=== PATIENT | female | born 1960 | race Hispanic/Latino ===

== ENCOUNTER 2022-08-31 15:27 | Emergency (ER) | payer BC ==
[~2022-08-31] VITALS: Ht 170.2 cm; Wt 127.0 kg
[~2022-08-31 15:27] MED LIST: ASPI-1197 PO; CALCIUM + VIT D3 PO; CETI10TA57 PO; CHOL50004 PO; CYAN50009 PO; FISH1CAP27 PO; LORA10CA9 PO; MVI PO; SOLI5 PO; VITAMIN C PO; WOMEN PO
[2022-08-31] MEDS ORDERED: MORPHINE 4 MG SYG IVP ONE (16:00)
[2022-08-31] MEDS ORDERED: MIDAZOLAM HCL 1 MG/ML 2ML VIAL IVP ONE (16:30)
[2022-08-31 16:32] VITALS: BP 144/71
[2022-08-31] MEDS ORDERED: WALK1EAC55 MC (17:38)
== END 2022-08-31 17:50 | disposition home or self-care (01) ==
LOC: EDH 15:27
DX: S83.105A Unspecified dislocation of left knee, initial encounter (principal); Z79.82 Long term (current) use of aspirin; X58.XXXA Exposure to other specified factors, initial encounter; Y93.89 Activity, other specified; Y92.89 Other specified places as the place of occurrence of the external cause; Y99.8 Other external cause status
CPT/HCPCS: 99284; 27550; 96374; 96375; 73562; 73560; J2250; J2270